=== PATIENT | female | born 1940 | race Caucasian/White ===

== ENCOUNTER 2018-05-05 19:34 | Emergency (ER) | payer OTHER ==
[2018-05-05 20:04] VITALS: TEMP 98.4
[2018-05-05 20:17] VITALS: BP 169/95; PULSE 88; RESP 18; O2SAT 98
== END 2018-05-05 20:20 | disposition home or self-care (01) | DRG 563 ==
LOC: ED 19:34
DX: S92.355A Nondisplaced fracture of fifth metatarsal bone, left foot, initial encounter for closed fracture (principal); S92.345A Nondisplaced fracture of fourth metatarsal bone, left foot, initial encounter for closed fracture
CPT/HCPCS: 73630; 99283; 99284